=== PATIENT | female | born 1945 ===

== ENCOUNTER 2018-04-29 17:21 | Emergency (ER) | payer MEDICAID ==
[2018-04-29 17:29] VITALS: TEMP 98.3; O2SAT 98
[2018-04-29 17:43] VITALS: PULSE 81; RESP 18
--- NOTE | 2018-04-29 17:52 | ED PDOC ---
Lower Extremity Pain/Injury Time Seen by Provider: 04/29/18 17:50 Chief Complaint (Nursing): Lower Extremity Problem/Injury Chief Complaint (Provider): leg pain History Per: Patient (72 y/o female here with bilateral leg pain ongoing associated with lower extremity swelling on and off. Patient feels as if she has had tactile fevers associated with leg pain. Notes pain in regional of lateral leg.) Past Medical History Reviewed: Historical Data, Nursing Documentation, Vital Signs Vital Signs: Last Vital Signs Temp 98.3 F 04/29/18 17:25 Pulse 81 04/29/18 17:42 Resp 18 04/29/18 17:42 BP 153/94 H 04/29/18 17:42 Pulse Ox 98 04/29/18 17:25 - Medical History PMH: Graves' Disease, HTN, Hyperthyroidism Denies: HIV - Surgical History Surgical History: Cholecystectomy - Family History Family History: States: No Known Family Hx - Home Medications Home Medications: Ambulatory Orders Medication Instructions Recorded Levothyroxine [Synthroid] 100 mcg PO DAILY 12/11/16 Lisinopril [Zestril] 10 mg PO DAILY #30 tablet 12/17/16 Acetaminophen [Acetaminophen 8 650 mg PO Q8 PRN #15 tablet.er 04/29/18 Hour] - Allergies Allergies/Adverse Reactions: Allergies Allergy/AdvReac Type Severity Reaction Status Date / Time No Known Allergies Allergy Verified 04/29/18 17:25 Review of Systems ROS Statement: Except As Marked, All Systems Reviewed And Found Negative Physical Exam - Reviewed Nursing Documentation Reviewed: Yes Vital Signs Reviewed: Yes - Physical Exam Appears: Positive for: Well, Non-toxic, No Acute Distress Head Exam: Positive for: ATRAUMATIC, NORMAL INSPECTION, NORMOCEPHALIC Skin: Positive for: Normal Color, Warm, DRY Eye Exam: Positive for: EOMI, Normal appearance, PERRL ENT: Positive for: Normal ENT Inspection Neck: Positive for: Normal, Painless ROM Cardiovascular/Chest: Positive for: Regular Rate, Rhythm Respiratory: Positive for: CNT, Normal Breath Sounds Gastrointestinal/Abdominal: Positive for: Normal Exam, Soft Back: Positive for: Normal Inspection Extremity: Positive for: Normal ROM, Other (mild ankle edema noted. tenderness laeral aspect of leg. Minimal erythema noted.) Neurologic/Psych: Positive for: Alert, Oriented - Laboratory Results Result Diagrams: 04/29/18 18:10 04/29/18 18:10 - ECG O2 Sat by Pulse Oximetry: 98 - Progress ED Course And Treament: duplex lower extremity neg for dvt Disposition - Clinical Impression Clinical Impression: Leg pain - Patient ED Disposition Is Patient to be Admitted: No - Disposition Disposition: Routine/Home Disposition Time: 19:06 Condition: FAIR Prescriptions: Acetaminophen [Acetaminophen 8 Hour] 650 mg PO Q8 PRN #15 tablet.er PRN Reason: Pain, Moderate (4-7) Instructions: Dependent Edema (DC) Forms: [facility] (Tajik) Print Language: GREENLANDIC
[2018-04-29 18:17] LABS: BASO % 0.3 % (0.0-2.0); EOS # 0.2 K/uL (0.0-0.7); EOS % 3.4 % (0.0-4.0); HEMOGLOBIN 12.3 g/dL (12.0-16.0); LYMPH # 2.7 K/uL (1.0-4.3); MEAN CELL VOLUME 93.9 fl (81.0-99.0); MEAN CORPUSCULAR HGB CONC 34.1 g/dL (33.0-37.0); MEAN PLATELET VOLUME 7.7 fl (7.2-11.7); MONO # 0.6 K/uL (0.0-0.8); MONO % 12.2 % (0.0-10.0); NEUT # 1.7 K/uL (1.8-7.0); NEUT % 32.1 % (50.0-75.0); NRBC % 0.1 % (0.0-0.0); RBC 3.86 Mil/uL (3.80-5.20); RED CELL DISTRIBUTION WIDTH 13.3 % (11.5-14.5); WHITE BLOOD COUNT 5.2 K/uL (4.8-10.8)
[2018-04-29 18:27] LABS: BLOOD UREA NITROGEN 23 mg/dl (7-17); CALCIUM 9.1 mg/dL (8.4-10.2); GFR AFRICAN-AMERICAN > 60; GFR NON-AFRICAN AMERICAN > 60
--- NOTE | 2018-04-29 19:00 | US ---
PROCEDURE: Bilateral lower extremity venous duplex Doppler. HISTORY: leg pain COMPARISON: None available. TECHNIQUE: Bilateral common femoral, superficial femoral, popliteal and posterior tibial veins were evaluated. Flow was assessed with color Doppler, compressibility, assessment of phasic flow and augmentation response. FINDINGS: COMMON FEMORAL VEIN: Right CFV: Unremarkable. Left CFV: Unremarkable. SUPERFICIAL FEMORAL VEIN: Right SFV: Unremarkable. Left SFV: Unremarkable. POPLITEAL VEIN: Right Popliteal: Unremarkable. Left Popliteal: Unremarkable. POSTERIOR TIBIAL VEIN: Right PTV: Unremarkable. Left PTV: Unremarkable. OTHER FINDINGS: None. IMPRESSION: No evidence of deep venous thrombosis.
[2018-04-29 19:16] VITALS: BP 153/90
== END 2018-04-29 19:25 | disposition home or self-care (01) ==
LOC: H.ER 17:21
DX: M79.606 Pain in leg, unspecified (principal)